=== PATIENT | female | born 1990 | race Caucasian/White ===

== ENCOUNTER 2017-08-23 18:32 | Emergency (ER) | payer SELFPAY ==
[2017-08-23 18:48] VITALS: BP 134/78; BMI 45.9
--- NOTE | 2017-08-23 19:35 | DR.GENAD ---
HPI - Complaint/Symptoms Chief Complaint:: PT STATES THAT SHE TOOK A TEST 3 DAYS AGO THAT WAS POSITIVE. PT STATES THAT SHE HAD HER TUBES CLAMPED 18 MONTHS AGO BUT IS HAVING OTHER SYMPTOMS ALSO SUCH SORE BREASTS AND SHARP CRAMPS Self Treatment fo Chief Complaint: IF POSITIVE PREG - Nurses notes reviewed Nurses Notes Review: Yes - Source History Provided: Patient - Mode of Arrival Mode of Arrival: Ambulatory - Timing Onset of Chief Complaint: 08/20/17 Came on: Suddenly - Duration Duration: Constant Duration: Days PMH - PMH Past Medical History: Yes Past Medical History: Hypertension Past Surgical History: Yes Surgical History: - Family History History of Family Medical Conditions: Yes Family Medical History: Cancer, Heart Failure, Hypertension - Social History Do you use any recreational Drugs:: No - infectious screening Have you traveled outside the country in the last 6 months?: No PE - Vital Signs Vitals: Temperature 98.1 F Pulse Rate 97 Respiratory Rate 18 Blood Pressure 134/78 O2 Sat by Pulse Oximetry 100 ROR - Labs Reviewed Laboratory: HCG, Qual Negative <10 mIU/mL 08/23/17 19:45 Specimen Type Clean catch urine 08/23/17 19:51 Urine Color Yellow (YELLOW) 08/23/17 19:51 Urine Appearance Clear (CLEAR) 08/23/17 19:51 Urine pH 7.0 (5.0 - 8.0) 08/23/17 19:51 Ur Specific Bypro 1.005 (1.000-1.030) 08/23/17 19:51 Urine Protein Negative (NEGATIVE) 08/23/17 19:51 Urine Glucose (UA) Negative (NEGATIVE) 08/23/17 19:51 Urine Ketones Negative (NEGATIVE) 08/23/17 19:51 Urine Occult Blood Negative (NEGATIVE) 08/23/17 19:51 Urine Nitrite Negative (NEGATIVE) 08/23/17 19:51 Urine Bilirubin Negative (NEGATIVE) 08/23/17 19:51 Urine Urobilinogen Normal (NORMAL) 08/23/17 19:51 Ur Leukocyte Esterase Negative (NEGATIVE) 08/23/17 19:51 Urine RBC Rare /HPF (NEGATIVE) 08/23/17 19:51 Urine WBC None seen /HPF (NEGATIVE) 08/23/17 19:51 Ur Squamous Epith Cells Few /HPF (NEGATIVE) 08/23/17 19:51 Amorphous Sediment Trace /HPF (NEGATIVE) 08/23/17 19:51 Urine Bacteria Negative /HPF (NEGATIVE) 08/23/17 19:51 Ur Culture Indicated? No/not indicated 08/23/17 19:51 - Diagnosis Discharge Problem: Abdominal pain Qualifiers: Abdominal location: lower abdomen, unspecified Qualified Code(s): R10.30 - Lower abdominal pain, unspecified - Discharge Plan Condition: Stable - Follow ups/Referrals Follow ups/Referrals: N[facility],None [Primary Care Provider] - 3 days - Instructions Instructions: Abdominal Pain, Adult, [id number] Additional Instructions: return to ed if worse.
[2017-08-23 20:08] LABS: SERUM PREGNANCY TEST, QUAL NEGATIVE <10 mIU/mL
[2017-08-23 20:14] LABS: BILIRUBIN,URINE NEGATIVE (NEGATIVE); BLOOD/HEMOGLOBIN,URINE NEGATIVE (NEGATIVE); GLUCOSE, URINE NEGATIVE (NEGATIVE); KETONES,URINE NEGATIVE (NEGATIVE); LEUKOCYTE ESTERASE ,URINE NEGATIVE (NEGATIVE); NITRITES,URINE NEGATIVE (NEGATIVE); PROTEIN,URINE NEGATIVE (NEGATIVE); UROBILINOGEN,URINE NORMAL (NORMAL)
[2017-08-23 20:18] LABS: APPEARANCE,URINE CLEAR (CLEAR); COLOR,URINE YELLOW (YELLOW)
[2017-08-23 20:28] LABS: RBC,URINE RARE /HPF (NEGATIVE); SQUAMOUS EPITHELIAL CELL,UR FEW /HPF (NEGATIVE)
[2017-08-23 20:29] LABS: AMORPHOUS SEDIMENT,UR TRACE /HPF (NEGATIVE); BACTERIA,URINE NEGATIVE /HPF (NEGATIVE)
== END 2017-08-23 21:20 | disposition home or self-care (01) ==
LOC: ER 18:52
DX: R10.84 Generalized abdominal pain (principal); Z32.02 Encounter for pregnancy test, result negative
CPT/HCPCS: 36415; 81001; 84703; 99282